=== PATIENT | male | born 2005 | race Hispanic/Latino ===

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

== ENCOUNTER 2023-07-24 07:27 | Emergency (ER) | payer MEDICAID ==
[2023-07-24] VITALS (12 sets, daily range): BP systolic 122–150; BP diastolic 77–96
[~2023-07-24] VITALS: Ht 177.8 cm; Wt 102.0 kg
[~2023-07-24 07:27] MED LIST changes: +ACID REFLUX MED; +FLEXERIL5 M1 PO; +PEPCID20 MG PO; +VOLTAREN1%GEL TOP
[2023-07-24 08:08] LABS: BASO% 0.5 % (0-3); EOS% 0.1 % (0-8); HEMATOCRIT 41.8 % (39.0-50.0); IMMATURE GRANULOCYTES 1.8 % (0.0-5.0); LYMPH% 17.9 % (15-41); MEAN CELL VOLUME 85.1 fL CALC (80.0-100.0); MEAN CORPUSCULAR HGB 28.5 pG CALC (26.0-32.0); MEAN CORPUSCULAR HGB CONC 33.5 g/dL CAL (32.0-36.0); MONO% 6.2 % (2-13); NEUT# 7.54 thou/uL (1.82-7.42); NEUT% 73.5 % (42-76); RED BLOOD COUNT 4.91 mill/uL (4.70-6.10)
[2023-07-24 08:29] LABS: ALBUMIN 4.7 g/dL (3.2-5.0); ALKALINE PHOSPHATASE 100 u/l (38-126); ANION GAP 18 (6-22 (CALC)); BILIRUBIN, TOTAL 0.4 mg/dL (0.2-1.3); BUN 7 mg/dL (9-20); BUN/CREATININE RATIO 11 (12-20 (CALC)); CARBON DIOXIDE 22 mmol/l (22-30); CHLORIDE 104 mmol/l (95-108); CREATININE 0.7 mg/dL (0.7-1.3); GFR FOR AFR.AMER. > 60 ML/MIN (>=60 (CALC)); GFR OTHER RACES > 60 ML/MIN (>=60 (CALC)); LIPASE 38 u/l (23-300); POTASSIUM 3.9 mmol/l (3.5-5.1); SGOT/AST 40 u/l (17-59); SODIUM 140 mmol/l (137-146); TOTAL PROTEIN 8.8 g/dL (6.3-8.2)
== END 2023-07-24 10:58 | disposition home or self-care (01) ==
LOC: ED 07:27
PROVIDERS: Emergency Medicine
DX: R07.9 Chest pain, unspecified (principal); F14.10 Cocaine abuse, uncomplicated; E86.0 Dehydration; R00.0 Tachycardia, unspecified; F10.129 Alcohol abuse with intoxication, unspecified
CPT/HCPCS: Q9967

== ENCOUNTER 2023-09-14 20:10 | Emergency (ER) | payer MEDICAID ==
[~2023-09-14] VITALS: Ht 177.8 cm; Wt 102.0 kg
[2023-09-14 21:31] LABS: BASO% 0.6 % (0-3); EOS% 0.1 % (0-8); HEMOGLOBIN 14.3 g/dl (14.0-18.0); IMMATURE GRANULOCYTES 0.8 % (0.0-5.0); LYMPH% 23.3 % (15-41); MEAN CELL VOLUME 85.5 fL CALC (80.0-100.0); MEAN CORPUSCULAR HGB 28.4 pG CALC (26.0-32.0); MEAN CORPUSCULAR HGB CONC 33.3 g/dL CAL (32.0-36.0); MONO% 9.2 % (2-13); NEUT# 6.7 thou/uL (1.82-7.42); RED BLOOD COUNT 5.03 mill/uL (4.70-6.10); RED CELL DISTRI WIDTH 11.6 % (11.5-15.5)
[2023-09-14 21:37] LABS: ALBUMIN 4.9 g/dL (3.2-5.0); ALKALINE PHOSPHATASE 88 u/l (38-126); ANION GAP 19 (6-22 (CALC)); BILIRUBIN, TOTAL 0.5 mg/dL (0.2-1.3); BUN 10 mg/dL (9-20); BUN/CREATININE RATIO 13 (12-20 (CALC)); CARBON DIOXIDE 24 mmol/l (22-30); CHLORIDE 99 mmol/l (95-108); CREATININE 0.8 mg/dL (0.7-1.3); ETHYL ALCOHOL 0 mg/dl (0-30); GFR FOR AFR.AMER. > 60 ML/MIN (>=60 (CALC)); GFR OTHER RACES > 60 ML/MIN (>=60 (CALC)); POTASSIUM 3.6 mmol/l (3.5-5.1); SGOT/AST 43 u/l (17-59); SODIUM 138 mmol/l (137-146); TOTAL PROTEIN 8.3 g/dL (6.3-8.2)
[2023-09-15] VITALS: BP 129/94
== END 2023-09-15 | disposition home or self-care (01) ==
LOC: ED 20:10
PROVIDERS: Family Medicine
DX: F10.129 Alcohol abuse with intoxication, unspecified (principal); F14.13 Cocaine abuse, unspecified with withdrawal; Y90.0 Blood alcohol level of less than 20 mg/100 ml

== ENCOUNTER 2023-10-17 13:02 | Emergency (ER) | payer OTHER ==
[2023-10-17] VITALS (8 sets, daily range): BP systolic 115–136; BP diastolic 72–92
[~2023-10-17] VITALS: Ht 177.8 cm; Wt 100.0 kg
[2023-10-17] MEDS ORDERED: MECLIZINE25 MG PO (15:30)
== END 2023-10-17 15:40 | disposition home or self-care (01) ==
LOC: ED 13:02
DX: R42 Dizziness and giddiness (principal); S69.91XA Unspecified injury of right wrist, hand and finger(s), initial encounter; W23.2XXA Caught, crushed, jammed or pinched between a moving and stationary object, initial encounter; Z20.822 Contact with and (suspected) exposure to COVID-19

== ENCOUNTER 2023-10-23 22:40 | Emergency (ER) | payer OTHER ==
[~2023-10-23] VITALS: Ht 177.8 cm; Wt 104.0 kg
[~2023-10-23 22:40] MED LIST changes: +MECLIZINE25 MG PO
[2023-10-23 22:55] VITALS: BP 128/87
[2023-10-23 23:01] VITALS: BP 130/83
[2023-10-23 23:36] LABS: BASO% 0.6 % (0-3); EOS% 3.6 % (0-8); HEMATOCRIT 38.6 % (39.0-50.0); HEMOGLOBIN 12.8 g/dl (14.0-18.0); IMMATURE GRANULOCYTES 0.5 % (0.0-5.0); LYMPH% 32.4 % (15-41); MEAN CELL VOLUME 85.6 fL CALC (80.0-100.0); MEAN CORPUSCULAR HGB 28.4 pG CALC (26.0-32.0); MEAN CORPUSCULAR HGB CONC 33.2 g/dL CAL (32.0-36.0); MONO% 8.1 % (2-13); NEUT# 5.15 thou/uL (1.82-7.42); NEUT% 54.8 % (42-76); RED BLOOD COUNT 4.51 mill/uL (4.70-6.10); RED CELL DISTRI WIDTH 11.7 % (11.5-15.5)
[2023-10-23 23:50] LABS: ALBUMIN 4.7 g/dL (3.2-5.0); ALKALINE PHOSPHATASE 93 u/l (38-126); ANION GAP 13 (6-22 (CALC)); BILIRUBIN, TOTAL 0.3 mg/dL (0.2-1.3); BUN 17 mg/dL (9-20); BUN/CREATININE RATIO 22 (12-20 (CALC)); CARBON DIOXIDE 25 mmol/l (22-30); CHLORIDE 105 mmol/l (95-108); CREATININE 0.8 mg/dL (0.7-1.3); ETHYL ALCOHOL 0 mg/dl (0-30); GFR FOR AFR.AMER. > 60 ML/MIN (>=60 (CALC)); GFR OTHER RACES > 60 ML/MIN (>=60 (CALC)); POTASSIUM 3.6 mmol/l (3.5-5.1); SGOT/AST 32 u/l (17-59); SODIUM 140 mmol/l (137-146); TOTAL PROTEIN 7.7 g/dL (6.3-8.2)
[2023-10-24] VITALS: BP 125/81
[2023-10-24 00:06] LABS: PROTHROMBIN TIME 9.9 SECONDS (9.0-12.5)
[2023-10-24 00:18] LABS: D-DIMER 1.36 mg/L (0.19-0.60)
[2023-10-24 01:01] VITALS: BP 125/81
[2023-10-24 01:21] LABS: URINE BILIRUBIN - DIPSTICK Negative (NEGATIVE); URINE BLOOD DIPSTICK Negative (NEGATIVE); URINE GLUCOSE - DIPSTICK Negative (NEGATIVE); URINE KETONE Negative (NEGATIVE); URINE LEUK ESTERASE Negative (NEGATIVE); URINE NITRITE - DIPSTICK Negative (Negative); URINE PROTEIN - DIPSTICK Negative (NEG-TRACE); URINE SPECIFIC GRAVITY >=1.030; URINE UROBILINOGEN - DIPSTICK 0.2 E.U./dL (0.2)
[2023-10-24 01:22] LABS: URINE COLOR Yellow
[2023-10-24 02:01] VITALS: BP 116/64
[2023-10-24 03:01] VITALS: BP 136/87
[2023-10-24 05:30] VITALS: BP 136/87
== END 2023-10-24 05:38 | disposition home or self-care (01) ==
LOC: ED 22:40
PROVIDERS: Family Medicine
DX: R00.2 Palpitations (principal)
CPT/HCPCS: Q9967

== ENCOUNTER 2024-08-07 14:21 | Emergency (ER) | payer SELFPAY ==
[~2024-08-07] VITALS: Ht 177.8 cm; Wt 104.0 kg
[~2024-08-07 14:21] MED LIST changes: +MOTRIN800 MG PO
[2024-08-07] MEDS ORDERED: ONDANSETRON HCl 4 MG/2 ML SDV IV STA (14:38)
[2024-08-07] MEDS ORDERED: Pantoprazole Sodium 40 MG VIAL (Protonix) IV STA (14:38)
[2024-08-07] MEDS ORDERED: MORPHINE SULFATE 4 MG/ML VIAL IV STA (14:38)
[2024-08-07] MEDS ORDERED: Barium Sulfate (Readi-Cat 2 Banana) 450 ML/BTL PO ONE (14:40)
[2024-08-07] MEDS ORDERED: Barium Sulfate (Readi-Cat 2 Berry) 450 ML/BTL PO ONE (14:40)
[2024-08-07] MEDS ORDERED: DIATRIZOATE MEGLUMINE & SODIUM 30 ML/BTL PO ONE (14:40)
[2024-08-07] MEDS ORDERED: ISOVUE-300 (Iopamidol) 100 ML SDV IV ONE (14:40)
[2024-08-07 14:52] LABS: BASO% 0.6 % (0-3); EOS% 0.6 % (0-8); HEMOGLOBIN 14.5 g/dl (14.0-18.0); LYMPH% 25.3 % (15-41); MEAN CELL VOLUME 86.3 fL CALC (80.0-100.0); MEAN CORPUSCULAR HGB 29.1 pG CALC (26.0-32.0); MEAN CORPUSCULAR HGB CONC 33.7 g/dL CAL (32.0-36.0); MONO% 8.5 % (2-13); NEUT# 5.89 thou/uL (1.82-7.42); RED BLOOD COUNT 4.98 mill/uL (4.70-6.10); RED CELL DISTRI WIDTH 11.9 % (11.5-15.5)
[2024-08-07 15:01] LABS: URINE BILIRUBIN - DIPSTICK Negative (NEGATIVE); URINE BLOOD DIPSTICK Negative (NEGATIVE); URINE GLUCOSE - DIPSTICK Negative (NEGATIVE); URINE KETONE Negative (NEGATIVE); URINE LEUK ESTERASE Negative (NEGATIVE); URINE NITRITE - DIPSTICK Negative (Negative); URINE PH 8.5 (4.5-8.0); URINE PROTEIN - DIPSTICK Trace mg/dL (NEG-TRACE); URINE SPECIFIC GRAVITY 1.015; URINE UROBILINOGEN - DIPSTICK 0.2 E.U./dL (0.2)
[2024-08-07 15:04] LABS: URINE COLOR Yellow
[2024-08-07 15:10] LABS: ALBUMIN 4.8 g/dL (3.2-5.0); ALKALINE PHOSPHATASE 92 u/l (38-126); AMYLASE 61 u/l (30-110); ANION GAP 16 (6-22 (CALC)); BUN 8 mg/dL (9-20); BUN/CREATININE RATIO 12 (12-20 (CALC)); CARBON DIOXIDE 25 mmol/l (22-30); CHLORIDE 103 mmol/l (95-108); CREATININE 0.7 mg/dL (0.7-1.3); ESTIMATED GFR 134 ML/MIN (>=90 (CALC)); POTASSIUM 4.6 mmol/l (3.5-5.1); SODIUM 139 mmol/l (137-146); TOTAL PROTEIN 8.2 g/dL (6.3-8.2)
[2024-08-07 15:13] LABS: BILIRUBIN, TOTAL 0.6 mg/dL (0.2-1.3); SGOT/AST 58 u/l (17-59)
[2024-08-07] MEDS ORDERED: OMEPRAZOLE20 MG PO (17:31)
[2024-08-07 17:33] VITALS: BP 145/89
== END 2024-08-07 17:40 | disposition home or self-care (01) | DRG 392 ==
LOC: ED 14:21
PROVIDERS: Nurse Practitioner Family
DX: K21.9 Gastro-esophageal reflux disease without esophagitis (principal); F41.9 Anxiety disorder, unspecified
CPT/HCPCS: J2470; Q9967